=== PATIENT | male | born 1950 | race Caucasian/White ===

== ENCOUNTER → 2018-08-19 | Outpatient (CLI) | payer MEDICARE, OTHER ==
[2018-08-19 10:16] LABS: Cholesterol 163 mg/dL (<200); HDL Cholesterol 34 mg/dL (40-60); LDL Cholesterol,Calculated 111 mg/dL (0-99); Triglycerides 90 mg/dL (<150)
== END | disposition home or self-care (01) ==
LOC: LABWHC1 08:29
PROVIDERS: ATTEND Internal Medicine Cardiovascular Disease
DX: E78.2 Mixed hyperlipidemia (principal); R07.2 Precordial pain
CPT/HCPCS: 36415; 80061

== ENCOUNTER → 2018-08-19 | Outpatient (CLI) | payer MEDICARE, OTHER ==
[2018-08-19 10:01] LABS: HCT 40.7 % (39.0-53.0); MCH 29.7 pg (25.0-35.0); MCHC 31.9 g/dL (31.0-37.0); Platelet Count 266 k/uL (150-450); RBC 4.38 m/uL (4.30-5.90); RDW 13.6 % (11.5-15.5)
[2018-08-19 10:16] LABS: Anion Gap 10 mmol/L; Blood Urea Nitrogen 12 mg/dL (9-20); Carbon Dioxide 25 mmol/L (22-30); Chloride 104 mmol/L (98-107); Potassium 4.5 mmol/L (3.5-5.1); Sodium 139 mmol/L (137-145)
== END | disposition home or self-care (01) ==
LOC: LABPAT 07:45
PROVIDERS: ATTEND Internal Medicine Cardiovascular Disease
DX: Z01.812 Encounter for preprocedural laboratory examination (principal); R07.2 Precordial pain; I49.3 Ventricular premature depolarization; E78.2 Mixed hyperlipidemia
CPT/HCPCS: 36415; 80051; 82565; 84520; 85027

== ENCOUNTER 2018-08-29 07:38 | Day surgery (SDC) | payer MEDICARE, OTHER ==
[2018-08-17 08:48] VITALS: BMI 35.8
[~2018-08-29 07:38] MED LIST: ALPRAZolam 0.25 MG TAB PO PRN; ALPRAZolam 0.5 MG TAB PO PRN; ASPIRIN 325 MG TAB PO STA; ATORVASTATIN 80 MG TAB PO STA; NITROGLYCERIN SL TABS 0.4 MG TAB SUBLINGUAL PRN; SODIUM CHLORIDE 0.9% 1,000 ML in EMPTY BAG 1 BAG IV ONE
[2018-08-29] MEDS ORDERED: IV FLUID CONTINUATION 950 ML IV ONE (09:09)
[2018-08-29] MEDS: MIDAZOLAM 2 MG/2 ML VIAL IV ONE ×2 (09:31→09:37)
[2018-08-29] MEDS ORDERED: fentaNYL (PF) 50 MCG/ML 2 ML AMP IV ONE (09:31)
[2018-08-29] MEDS ORDERED: LIDOCAINE 1% INJ 10MG/ML (20 ML MDV) SQ ONE (09:36)
[2018-08-29] MEDS ORDERED: IOPAMIDOL-370 125ML BTL INJ ONE (09:54)
[2018-08-29] MEDS ORDERED: RX INFO: IV CONTRAST WAS GIVEN 1 EACH MISC MISCELLANE PRN (10:07)
[2018-08-29] MEDS ORDERED: SODIUM CHLORIDE 0.9% 1,000 ML IV SCH (10:15)
--- NOTE | 2018-08-29 10:44 | CC ---
CARDIAC CATHETERIZATION REPORT INDICATION: Chest pain with abnormal stress test showing ischemia in the apex. PROCEDURE NOTE: After obtaining informed consent, left heart catheterization and coronary angiogram were performed via the right femoral artery using standard Nia catheters. Patient tolerated the procedure well without any obvious immediate complications. A femoral angiogram was performed and decision was made for manual hemostasis. Patient received moderate conscious sedation. Total sedation time was 16 minutes. FINDINGS: 1. HEMODYNAMICS: Left ventricular end-diastolic pressure is around 12-14 mm. There is no significant gradient across the aortic valve. 2. LEFT VENTRICULOGRAM: Left ventriculogram is not performed. 3. ANGIOGRAPHIC DATA: 4. LEFT MAIN CORONARY ARTERY: Left main coronary artery shows mild calcification without any stenosis. Divides into left anterior descending coronary artery and circumflex coronary artery. LAD shows irregular ectatic changes in the proximal and midportion without focal critical lesions. Circumflex coronary artery gives off a large caliber OM branch that shows a lesion within the ostial portion of the OM branch. Right coronary artery is a large dominant vessel that shows multiple irregular ectatic areas and PLV branch after an aneurysmal area bifurcates and there is a stenosis in the ostial portion of one of the smaller branches of that. CONCLUSION: Three-vessel coronary artery disease as described above with multiple irregular ectatic and aneurysmal changes while there is a lesion in the ostial portion of the diagonal branch and circumflex coronary artery. These are not easily amenable to catheter based revascularization. I advised the patient to have optimal medical therapy and he is currently free of significant symptoms of exertional angina. MMODL / IJN: [id number] /
[2018-08-29 16:37] VITALS: RESP 16
[2018-08-29 17:22] VITALS: BP 126/68; PULSE 67
== END 2018-08-29 17:10 | disposition home or self-care (01) ==
LOC: CATHCVL 07:38
PROVIDERS: ATTEND Internal Medicine Cardiovascular Disease
DX: I25.10 Atherosclerotic heart disease of native coronary artery without angina pectoris (principal); I25.84 Coronary atherosclerosis due to calcified coronary lesion; I10 Essential (primary) hypertension; I49.3 Ventricular premature depolarization; F17.210 Nicotine dependence, cigarettes, uncomplicated; E78.5 Hyperlipidemia, unspecified; I73.9 Peripheral vascular disease, unspecified; Z82.49 Family history of ischemic heart disease and other diseases of the circulatory system; Z91.048 Other nonmedicinal substance allergy status; Z79.82 Long term (current) use of aspirin; Z79.899 Other long term (current) drug therapy; Z88.5 Allergy status to narcotic agent; Z88.2 Allergy status to sulfonamides
CPT/HCPCS: 93458; C1894; C1769; J2250; J2001; J3010; Q9967

== ENCOUNTER → 2019-07-10 | Outpatient (CLI) | payer MEDICARE, OTHER ==
--- NOTE | 2019-07-10 18:44 | XR ---
EXAMINATION TYPE: XR chest 2V DATE OF EXAM: 07/10/2019 COMPARISON: 10/10/2015 HISTORY: 68 year-old male chest pain on breathing TECHNIQUE: Frontal and lateral views FINDINGS: Heart normal size. The thoracic aorta appears tortuous/ectatic. Pulmonary vasculature within normal l imits. Multiple old healed left-sided rib fracture deformities. No consolidation or pleural effusion. Bilateral reverse total shoulder arthroplasties. ACDF hardware. IMPRESSION: 1. Tortuous or ectatic appearing thoracic aorta. If concern for underlying thoracic aortic aneurysm, CT can be performed. 2. Multiple old healed left-sided rib fracture deformities.
== END | disposition home or self-care (01) ==
LOC: RADXRMAIN 14:04
PROVIDERS: ATTEND Internal Medicine Sleep Medicine
DX: S22.42XS Multiple fractures of ribs, left side, sequela (principal); R07.1 Chest pain on breathing
CPT/HCPCS: 71046

== ENCOUNTER → 2019-08-15 | Outpatient (CLI) | payer MEDICARE, OTHER | END | disposition home or self-care (01) | LOC: RADMRIMAIN 07:07 | PROVIDERS: ATTEND Physical Medicine & Rehabilitation | DX: Z53.9 Procedure and treatment not carried out, unspecified reason (principal) ==